=== PATIENT | female | born 1995 | race Caucasian/White ===

== ENCOUNTER 2017-05-03 23:44 | Inpatient (IN) | payer MEDICAID ==
[2017-05-04] MEDS ORDERED: Ondansetron 4 MG/2 ML SDV IVPUSH PRN ×2 (00:19→02:17)
[2017-05-04] MEDS ORDERED: Aluminum Hydroxide/Magnesium Hydroxide/Simethicone Susp 30 ML Cup PO PRN (00:19)
[2017-05-04] MEDS ORDERED: Lidocaine 1% 50 ML MDV INJECT PRN (00:19)
[2017-05-04] MEDS ORDERED: Nalbuphine 20 MG/1 ML Amp IVPUSH PRN (00:19)
[2017-05-04] MEDS ORDERED: Oxytocin/Lactated Ringers 10 UNIT/1,000 ML BAG IV SCH (00:30)
[2017-05-04] MEDS ORDERED: Ampicillin 2 GM in Sodium Chloride 0.9% 100 ML IV ONE (00:30)
[2017-05-04] MEDS ORDERED: Lactated Ringers 1,000 ML IV SCH (00:30)
[2017-05-04] MEDS ORDERED: Ampicillin 2 GM Vial ONE (00:39)
[2017-05-04] MEDS ORDERED: Sodium Chloride 0.9% 100 ML ONE (00:39)
--- NOTE | 2017-05-04 00:54 | PCM.LDHP ---
<Loreto Wan - Last Filed: 05/04/17 01:23> L&D History of Present Illness - General Date of Service: 05/04/17 Admit Problem/Dx: Patient Status Order with Admit Dx/Problem 05/04/17 00:20 Patient Status [ADT] Routine Admission Diagnosis/Problem Admission Diagnosis/Problem Normal labor 05/04/17 00:50 Intrauterine at 39 and 2/7th weeks gestation. - History of Present Illness Introduction:: History of Present Illness: The patient is a 21-year-old, 1, para 0-0-1-0, white female with an EDIN of 05/09/2017, who was admitted during the night with complaints of contractions. She was admitted in active labor at 4 cm dilation. Course: The patient's last menstrual period was on 08/05/2016, was definite, using no control at the time of conception. Her EDIN was supported by ultrasounds done on 12/25/2016 and 01/09/2017. Her course has been relatively unremarkable. She was [facility] for [facility]lamydia infection. [facility] She desires natural labor but is open to the idea of an epidural. She had an [place] Depression Screen score of 3 on 12/18/2016. Tdap vaccine was given on 03/14/2017. Group B strep screen was positive. She plans on . Her course weight gain was 129 up to 175 pounds. Her vital signs were stable throughout and fundal height growth was appropriate. Laboratory Testing: Showed blood to be A positive with a negative antibody screen. Her hemoglobin was 13.4 at first visit and platelets were 259,000. She is rubella immune. RPR is nonreactive. Hepatitis B and HIV assays were negative. Chlamydia was positive and gonorrhea was negative. She declined genetic testing. Her second trimester testing showed a hemoglobin of 12.9 and her platelets were 217,000. Her 1-hour glucose was 86 - normal. Group B strep screen was positive. Allergies: none Current Medications: tabs Clindamycin Phosphate 1% gel Past Medical History: chlamydia infection; 2014 Past Surgical History: none - Related Data Allergies/Adverse Reactions: Allergies Allergy/AdvReac Type Severity Reaction Status Date / Time No Known Allergies Allergy Verified 05/04/17 00:16 Home Medications: Home Meds Prenat Vit Comb.10/Iron/Fa/Dha [Vitafol-OB + DHA] 1 each PO DAILY 01/05/17 [ History] Social & Family History - Family History Other Family History: Maternal uncle: heart condition Mother: heart murmur Maternal uncle: stroke - Tobacco Use Smoking Status *Q: Never Smoker - Alcohol Use Alcohol Use History: No - Living Situation & Occupation Living situation: Reports: Single H&P Review of Systems - Review of Systems: Review Of Systems: See Below Free Text/Narrative: Respiratory: No dyspnea, recent infectious symptoms, or history of asthma. Cardiovascular: History of heart murmur and palpatations. No chest pain. Breasts: Changes associated only with . GI: Diarrhea recently. No nausea, and constipation. : Changes associated with . No burning with urination. Musculoskeletal: No edema during and none at present Neurological: No headaches or vision changes Hematologic: No history of blood clots, easy bruising or bleeding L&D Exam - Exam Exam: See Below - Vital Signs Vital Signs: Last Vital Signs Temp 97.9 F 05/04/17 00:15 Pulse 84 05/04/17 00:15 Resp 17 05/04/17 00:15 BP 126/84 05/04/17 00:15 Pulse Ox 100 05/04/17 00:15 General: The patient is a well-developed, well-nourished, pleasant female of stated age, in no acute distress Vital Signs: Her blood pressure was 118/76 on 05/03/2017 on last clinic evaluation. Her weight was 175 with pregravid weight of 129. heart rate was 141. Skin: warm and dry without lesions Lungs: Clear to auscultation bilaterally Cardiovascular: Regular rate and rhythm without murmurs Breasts: Exam deferred having been done and normal at initial visit Abdomen: Protuberant with and fundal height of 39 cm. Baby in a vertex presentation, cervical exam yesterday in clinic was 3 cm, 80% effaced, soft, 3- and mid position. Extremities: no edema Weight: 80.513 kg - Patient Data Lab Results Last 24 hrs: Laboratory Results - last 24 hr 05/04/17 Range/Units 00:40 WBC 14.28 H (3.98-10.04) K/mm3 RBC 4.13 (3.98-5.22) M/mm3 Hgb 13.5 (11.2-15.7) gm/L Hct 38.9 (34.1-44.9) % MCV 94.2 (79.4-94.8) fl MCH 32.7 H (25.6-32.2) pg MCHC 34.7 (32.2-35.5) g/dl RDW Std Deviation 44.0 (36.4-46.3) fL Plt Count 222 (182-369) K/mm3 MPV 10.2 (9.4-12.3) fl Neut % (Auto) 75.5 H (34.0-71.1) % Lymph % (Auto) 11.6 L (19.3-51.7) % Mcdonald % (Auto) 12.0 (4.7-12.5) % Eos % (Auto) 0.4 L (0.7-5.8) Baso % (Auto) 0.1 (0.1-1.2) % Neut # (Auto) 10.77 H (1.56-6.13) K/mm3 Lymph # (Auto) 1.66 (1.18-3.74) K/mm3 Mcdonald # (Auto) 1.72 H (0.24-0.36) K/mm3 Eos # (Auto) 0.06 (0.04-0.36) K/mm3 Baso # (Auto) 0.01 (0.01-0.08) K/mm3 Result Diagrams: 05/04/17 00:40 Orders Last 24hrs: Active Orders 24 hr Category Date Time Status Patient Status [ADT] Routine ADT 05/04/17 00:20 Active Activity as Tolerated [RC] PFP Care 05/04/17 00:20 Active Communication Order [RC] ASDIRECTED Care 05/04/17 00:20 Active Notify Provider [RC] PFP Care 05/04/17 00:20 Active Notify Provider [RC] PRN Care 05/04/17 00:20 Active Vital Signs [RC] PER UNIT ROUTINE Care 05/04/17 00:20 Active Regular Diet [DIET] Diet 05/04/17 Breakfast Active CBC WITH AUTO DIFF [HEME] Stat Lab 05/04/17 00:40 Results Alum Hydrox/Mag Hydrox/Simeth [Mag-Al Plus] Med 05/04/17 00:19 Active 30 ml PO Q8H PRN Ampicillin 1 gm Med 05/04/17 04:30 Active Sodium Chloride 0.9% [Normal Saline] 100 ml IV Q4H Ampicillin 2 gm Med 05/04/17 00:30 Active Sodium Chloride 0.9% [Normal Saline] 100 ml IV ONETIME Lactated Ringers [Ringers, Lactated] 1,000 ml Med 05/04/17 00:30 Active IV ASDIRECTED Lidocaine 1% [Xylocaine 1%] Med 05/04/17 00:19 Active 50 ml INJECT ONETIME PRN Nalbuphine [Nubain] Med 05/04/17 00:19 Active 10 mg IVPUSH Q2H PRN Ondansetron [Zofran] Med 05/04/17 00:19 Active 4 mg IVPUSH Q4H PRN Oxytocin/Lactated Ringers [Pitocin in LR 10 Units/1,000 Med 05/04/17 00:30 Active ML] 10 unit in 1,000 ml IV .CONTINUOUS Electronic Heart Tones Ext w TOCO [WOMSER] Oth 05/04/17 00:20 Ordered Routine Electronic Heart Tones Internal [WOMSER] Per Unit Oth 05/04/17 00:20 Ordered Routine Peripheral IV Insertion Adult [OM.PC] Routine Oth 05/04/17 00:20 Ordered Resuscitation Status Routine Resus Stat 05/04/17 00:19 Ordered Medication Orders Al Hydroxide/Mg Hydroxide (Mag-Al Plus) 30 ml PO Q8H PRN PRN Reason: Heartburn Ampicillin Sodium 2 gm/ Sodium (Chloride) 100 mls @ 200 mls/hr IV ONETIME ONE Stop: 05/04/17 00:59 Ampicillin Sodium 1 gm/ Sodium (Chloride) 100 mls @ 200 mls/hr IV Q4H JANIS Lactated Ringer's (Ringers, Lactated) 1,000 mls @ 100 mls/hr IV ASDIRECTED JANIS Oxytocin/Lactated Ringer's (Pitocin In Lr 10 Units/1,000 Ml) 10 unit in 1,000 mls @ 500 mls/hr IV .CONTINUOUS JANIS Lidocaine HCl (Xylocaine 1%) 50 ml INJECT ONETIME PRN PRN Reason: Pain Nalbuphine HCl (Nubain) 10 mg IVPUSH Q2H PRN PRN Reason: Pain (moderate 4-6) Ondansetron HCl (Zofran) 4 mg IVPUSH Q4H PRN PRN Reason: Nausea/Vomiting Assessment/Plan Comment:: Assessment: 1. Term intrauterine at 39 and 2/7th weeks gestational age, active labor, progression of cervical dilation. 2. Group B strep screen positive 3. Natural labor desired, epidural okay 4. Patient desires to nurse Plan: 1. Anticipate normal spontaneous vaginal delivery 2. Epidural PRN per patient's desire 3. CBC if epidural desired 4. support nursing decision <Devon Alonso F - Last Filed: 05/04/17 04:06> L&D History of Present Illness - General Admit Problem/Dx: Patient Status Order with Admit Dx/Problem 05/04/17 00:20 Patient Status [ADT] Routine Admission Diagnosis/Problem Admission Diagnosis/Problem Normal labor H&P Review of Systems - Review of Systems: Review Of Systems: See Below L&D Exam - Exam Exam: See Below - Vital Signs Vital Signs: Last Vital Signs Temp 36.6 C 05/04/17 02:30 Pulse 84 05/04/17 02:30 Resp 17 05/04/17 02:30 BP 126/84 05/04/17 02:30 Pulse Ox 100 05/04/17 02:30 - Patient Data Lab Results Last 24 hrs: Laboratory Results - last 24 hr 05/04/17 Range/Units 00:40 WBC 14.28 H (3.98-10.04) K/mm3 RBC 4.13 (3.98-5.22) M/mm3 Hgb 13.5 (11.2-15.7) gm/L Hct 38.9 (34.1-44.9) % MCV 94.2 (79.4-94.8) fl MCH 32.7 H (25.6-32.2) pg MCHC 34.7 (32.2-35.5) g/dl RDW Std Deviation 44.0 (36.4-46.3) fL Plt Count 222 (182-369) K/mm3 MPV 10.2 (9.4-12.3) fl Neut % (Auto) 75.5 H (34.0-71.1) % Lymph % (Auto) 11.6 L (19.3-51.7) % Mcdonald % (Auto) 12.0 (4.7-12.5) % Eos % (Auto) 0.4 L (0.7-5.8) Baso % (Auto) 0.1 (0.1-1.2) % Neut # (Auto) 10.77 H (1.56-6.13) K/mm3 Lymph # (Auto) 1.66 (1.18-3.74) K/mm3 Mcdonald # (Auto) 1.72 H (0.24-0.36) K/mm3 Eos # (Auto) 0.06 (0.04-0.36) K/mm3 Baso # (Auto) 0.01 (0.01-0.08) K/mm3 Manual Slide Review Abnormal smear Result Diagrams: 05/04/17 00:40 Problem List Initiated/Reviewed/Updated: Yes Orders Last 24hrs: Active Orders 24 hr Category Date Time Status Patient Status [ADT] Routine ADT 05/04/17 00:20 Active Activity as Tolerated [RC] PFP Care 05/04/17 00:20 Active Communication Order [RC] ASDIRECTED Care 05/04/17 00:20 Active Notify Provider [RC] ASDIRECTED Care 05/04/17 02:17 Active Notify Provider [RC] PFP Care 05/04/17 00:20 Active Notify Provider [RC] PRN Care 05/04/17 00:20 Active Oxygen Therapy [RC] ASDIRECTED Care 05/04/17 02:16 Active Pulse Oximetry [RC] ASDIRECTED Care 05/04/17 02:17 Active Vital Signs [RC] PER UNIT ROUTINE Care 05/04/17 00:20 Active Regular Diet [DIET] Diet 05/04/17 Breakfast Active Alum Hydrox/Mag Hydrox/Simeth [Mag-Al Plus] Med 05/04/17 00:19 Active 30 ml PO Q8H PRN Ampicillin 1 gm Med 05/04/17 04:30 Active Sodium Chloride 0.9% [Normal Saline] 100 ml IV Q4H Bupivacaine/fentaNYL/NS [fentaNYL/Bupivacaine/NS 2 MCG- Med 05/04/17 02:30 Active 0.125% 100 ML] 100 ml EPIDUR ASDIRECTED Lactated Ringers [Ringers, Lactated] 1,000 ml Med 05/04/17 00:30 Active IV ASDIRECTED Lidocaine 1% [Xylocaine 1%] Med 05/04/17 00:19 Active 50 ml INJECT ONETIME PRN Nalbuphine [Nubain] Med 05/04/17 00:19 Active 10 mg IVPUSH Q2H PRN Ondansetron [Zofran] Med 05/04/17 02:17 Active 4 mg IVPUSH ONETIME PRN Ondansetron [Zofran] Med 05/04/17 00:19 Active 4 mg IVPUSH Q4H PRN Oxytocin/Lactated Ringers [Pitocin in LR 10 Units/1,000 Med 05/04/17 00:30 Active ML] 10 unit in 1,000 ml IV .CONTINUOUS ePHEDrine [ePHEDrine Sulfate] Med 05/04/17 02:17 Active 5 mg IVPUSH ASDIRECTED PRN fentaNYL [Sublimaze] Med 05/04/17 02:17 Active 100 mcg EPIDUR Q3H PRN Electronic Heart Tones Ext w TOCO [WOMSER] Oth 05/04/17 00:20 Ordered Routine Electronic Heart Tones Internal [WOMSER] Per Unit Ot 05/04/17 00:20 Ordered Routine Peripheral IV Insertion Adult [OM.PC] Routine Oth 05/04/17 00:20 Ordered Resuscitation Status Routine Resus Stat 05/04/17 00:19 Ordered Medication Orders Al Hydroxide/Mg Hydroxide (Mag-Al Plus) 30 ml PO Q8H PRN PRN Reason: Heartburn Ephedrine Sulfate (Ephedrine Sulfate) 5 mg IVPUSH ASDIRECTED PRN PRN Reason: Hypotension Fentanyl (Sublimaze) 100 mcg EPIDUR Q3H PRN PRN Reason: Pain Fentanyl/Bupivacaine HCl (Fentanyl/Bupivacaine/Ns 2 Mcg-0.125% 100 Ml) 100 ml EPIDUR ASDIRECTED JANIS Ampicillin Sodium 1 gm/ Sodium (Chloride) 100 mls @ 200 mls/hr IV Q4H JANIS Lactated Ringer's (Ringers, Lactated) 1,000 mls @ 100 mls/hr IV ASDIRECTED JANIS Last Admin: 05/04/17 00:30 Dose: 500 mls/hr Oxytocin/Lactated Ringer's (Pitocin In Lr 10 Units/1,000 Ml) 10 unit in 1,000 mls @ 500 mls/hr IV .CONTINUOUS JANIS Last Admin: 05/04/17 03:44 Dose: 500 mls/hr Lidocaine HCl (Xylocaine 1%) 50 ml INJECT ONETIME PRN PRN Reason: Pain Nalbuphine HCl (Nubain) 10 mg IVPUSH Q2H PRN PRN Reason: Pain (moderate 4-6) Ondansetron HCl (Zofran) 4 mg IVPUSH Q4H PRN PRN Reason: Nausea/Vomiting Ondansetron HCl (Zofran) 4 mg IVPUSH ONETIME PRN PRN Reason: Nausea/Vomiting
[2017-05-04] MEDS ORDERED: Bupivacaine 0.25% 10 ML SDV ONE (00:59)
[2017-05-04] MEDS ORDERED: fentaNYL 100 MCG/2 ML SDV EPIDUR PRN (02:17)
[2017-05-04] MEDS ORDERED: ePHEDrine 50 MG/ML SDV IVPUSH PRN (02:17)
--- NOTE | 2017-05-04 02:29 | PCM.PREANE ---
Preanesthetic Assessment - Anesthesia/Transfusion/Family Hx Anesthesia History: No Prior Anesthesia Family History of Anesthesia Reaction: No Transfusion History: No Prior Transfusion(s) Intubation History: Unknown - Review of Systems General: No Symptoms Pulmonary: No Symptoms Cardiovascular: No Symptoms Gastrointestinal: Diarrhea, Nausea, Vomiting Neurological: No Symptoms Other: Reports: None - Physical Assessment NPO Status Date: 05/03/17 NPO Status Time: 21:30 Pulse: 84 O2 Sat by Pulse Oximetry: 100 Respiratory Rate: 17 Blood Pressure: 126/84 Temperature: 36.6 C Vital Signs: Last Vital Signs Temp 36.6 C 05/04/17 00:15 Pulse 84 05/04/17 00:15 Resp 17 05/04/17 00:15 BP 126/84 05/04/17 00:15 Pulse Ox 100 05/04/17 00:15 Height: 1.78 m Weight: 80.513 kg ASA Class: 2 Mental Status: Alert & Oriented x3 Airway Class: Mallampati = 2 Dentition: Reports: Normal Dentition, Caries Thyro-Mental Finger Breadths: 3 Mouth Opening Finger Breadths: 3 ROM/Head Extension: Full Lungs: Clear to Auscultation, Normal Respiratory Effort Cardiovascular: Regular Rate, Regular Rhythm - Lab Values: Laboratory Last Values WBC 14.28 K/mm3 (3.98-10.04) H 05/04/17 00:40 RBC 4.13 M/mm3 (3.98-5.22) 05/04/17 00:40 Hgb 13.5 gm/L (11.2-15.7) 05/04/17 00:40 Hct 38.9 % (34.1-44.9) 05/04/17 00:40 MCV 94.2 fl (79.4-94.8) 05/04/17 00:40 MCH 32.7 pg (25.6-32.2) H 05/04/17 00:40 MCHC 34.7 g/dl (32.2-35.5) 05/04/17 00:40 RDW Std Deviation 44.0 fL (36.4-46.3) 05/04/17 00:40 Plt Count 222 K/mm3 (182-369) 05/04/17 00:40 MPV 10.2 fl (9.4-12.3) 05/04/17 00:40 Neut % (Auto) 75.5 % (34.0-71.1) H 05/04/17 00:40 Lymph % (Auto) 11.6 % (19.3-51.7) L 05/04/17 00:40 [place] % (Auto) 12.0 % (4.7-12.5) 05/04/17 00:40 Eos % (Auto) 0.4 (0.7-5.8) L 05/04/17 00:40 Baso % (Auto) 0.1 % (0.1-1.2) 05/04/17 00:40 Neut # (Auto) 10.77 K/mm3 (1.56-6.13) H 05/04/17 00:40 Lymph # (Auto) 1.66 K/mm3 (1.18-3.74) 05/04/17 00:40 [place] # (Auto) 1.72 K/mm3 (0.24-0.36) H 05/04/17 00:40 Eos # (Auto) 0.06 K/mm3 (0.04-0.36) 05/04/17 00:40 Baso # (Auto) 0.01 K/mm3 (0.01-0.08) 05/04/17 00:40 Manual Slide Review Abnormal smear 05/04/17 00:40 Above labs reviewed and noted. 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: - Past Surgical History HEENT Surgical History: Reports: Oral Surgery Cardiovascular Surgical History: Reports: None - SUBSTANCE USE Smoking Status *Q: Never Smoker Tobacco Use Within Last Twelve Months: Cigarettes Second Hand Smoke Exposure: No Recreational Drug Use History: No - HOME MEDS Home Medications: Home Meds Prenat Vit Comb.10/Iron/Fa/Dha [Vitafol-OB + DHA] 1 each PO DAILY 01/05/17 [ History] - CURRENT (IN HOUSE) MEDS Current Meds: Current Medications Al Hydroxide/Mg Hydroxide (Mag-Al Plus) 30 ml PO Q8H PRN PRN Reason: Heartburn Ephedrine Sulfate (Ephedrine Sulfate) 5 mg IVPUSH ASDIRECTED PRN PRN Reason: Hypotension Fentanyl (Sublimaze) 100 mcg EPIDUR Q3H PRN PRN Reason: Pain Fentanyl/Bupivacaine HCl (Fentanyl/Bupivacaine/Ns 2 Mcg-0.125% 100 Ml) 100 ml EPIDUR ASDIRECTED [facility] Ampicillin Sodium 1 gm/ Sodium (Chloride) 100 mls @ 200 mls/hr IV Q4H JANIS Lactated Ringer's (Ringers, Lactated) 1,000 mls @ 100 mls/hr IV ASDIRECTED [facility] Last Admin: 05/04/17 00:30 Dose: 500 mls/hr Oxytocin/Lactated Ringer's (Pitocin In Lr 10 Units/1,000 Ml) 10 unit in 1,000 mls @ 500 mls/hr IV .CONTINUOUS [facility] Lidocaine HCl (Xylocaine 1%) 50 ml INJECT ONETIME PRN PRN Reason: Pain Nalbuphine HCl (Nubain) 10 mg IVPUSH Q2H PRN PRN Reason: Pain (moderate 4-6) Ondansetron HCl (Zofran) 4 mg IVPUSH Q4H PRN PRN Reason: Nausea/Vomiting Ondansetron HCl (Zofran) 4 mg IVPUSH ONETIME PRN PRN Reason: Nausea/Vomiting Discontinued Medications Ampicillin Sodium (Ampicillin) Confirm Administered Dose 2 gm .ROUTE .[employer]-MED ONE Stop: 05/04/17 00:40 Last Admin: 05/04/17 00:51 Dose: 2 gm Ampicillin Sodium 2 gm/ Sodium (Chloride) 100 mls @ 200 mls/hr IV ONETIME ONE Stop: 05/04/17 00:59 Last Admin: 05/04/17 00:55 Dose: Not Given Sodium Chloride (Normal Saline) Confirm Administered Dose 100 mls @ as directed .ROUTE .[employer]-MED ONE Stop: 05/04/17 00:40 Last Admin: 05/04/17 00:51 Dose: 200 ml
[2017-05-04] MEDS ORDERED: Bupivacaine/fentaNYL/NS 100 ML Bag EPIDUR SCH (02:30)
[2017-05-04] MEDS ORDERED: Witch Hazel Medicated Pads 100/Jar TOP PRN (04:10)
[2017-05-04] MEDS ORDERED: Lanolin 100% Cream 7 GM Tube TOP PRN (04:10)
[2017-05-04] MEDS ORDERED: Benzocaine/Menthol 20%-0.5% Spray 56 GM Canister TOP PRN (04:10)
[2017-05-04] MEDS ORDERED: Acetaminophen 325 MG Tab PO PRN (04:10)
[2017-05-04] MEDS ORDERED: Docusate Sodium 100 MG Cap PO PRN (04:10)
--- NOTE | 2017-05-04 04:14 | PCM.SN ---
- Free Text/Narrative Note: Gabbie is a 21-year-old 2 now para 1011 white female is admitted during the night of 05/03/2017. She is in active labor. On admission she was approximately 5 cm dilated, 100% effaced with bulging bag garzon. Vertex presentation. She progressed to complete cervical dilation by approximately 0300 hrs. Artificial rupture membranes resulted in clear amniotic fluid. heart tones were showing some decelerations so a small episiotomy was made and baby delivered without problems. She delivered a viable, pederson, male infant with Apgars of 8 and 9, a length of 20 inches, a weight of 3470 g (7 lbs. 10.4 oz.) in a right occiput anterior position. Anterior and posterior shoulders were delivered and baby was placed on mom's abdomen. The cord was clamped 2 and was cut by the father of the baby. Cord was obtained. A small midline episiotomy was repaired with 3-0 Monocryl in a routine fashion. The placenta delivered in a Rodriguez presentation, appeared intact and complete. It was discarded per patient's desire. Nuchal cord had 3 vessels. Blood loss was 300 mL. Patient plans to nurse. Condition: Good
[2017-05-04] MEDS ORDERED: Ampicillin 1 GM in Sodium Chloride 0.9% 100 ML IV SCH (04:30)
[2017-05-04] MEDS ORDERED: PRENAT VIT COMB PO SCH (09:00)
[2017-05-04] MEDS ORDERED: DHA PO SCH (09:00)
[2017-05-04] MEDS ORDERED: IRON PO SCH (09:00)
[2017-05-04] MEDS ORDERED: [UNRECOGNIZED DRUG - OTHER] PO SCH (09:00)
[2017-05-04] MEDS: Ibuprofen 600 MG Tab PO PRN ×2 (15:44→22:23)
[2017-05-05] MEDS: Prenatal Multivitamin with Calcium/Folic Acid/Iron Tab PO SCH ×2 (09:53→15:44)
[2017-05-05] MEDS: Ibuprofen 600 MG Tab PO PRN ×2 (09:53→20:09)
--- NOTE | 2017-05-05 10:13 | PCM.SN ---
- Free Text/Narrative Note: Patient is doing well. She reports minimal lochia. She is voiding without problems and ambulating well. She is nursing without concerns Vital signs are stable, patient is afebrile. Abdomen soft, nontender, uterus is at the umbilicus, is firm and nontender. Extremities show no significant edema. Assessment/plan: day onenormal recovery. Hemoglobin today.
[2017-05-06] MEDS: Ibuprofen 600 MG Tab PO PRN (03:14)
[2017-05-06 04:03] VITALS: BP 104/77
--- NOTE | 2017-05-06 06:19 | PCM.DCSUM1 ---
Discharge Summary - Hospital Course Free Text/Narrative:: Gabbie is a 21-year-old 2 now para 1011 white female is admitted during the night of 05/03/2017. She is in active labor. On admission she was approximately 5 cm dilated, 100% effaced with bulging bag garzon. Vertex presentation. She progressed to complete cervical dilation by approximately 0300 hrs. Artificial rupture membranes resulted in clear amniotic fluid. heart tones were showing some decelerations so a small episiotomy was made and baby delivered without problems. She delivered a viable, pederson, male with Apgars of 8 and 9, a length of 20 inches, a weight of 3470 g (7 lbs. 10.4 oz.) in a right occiput anterior position. Anterior and posterior shoulders were delivered and baby was placed on mom's abdomen. The cord was clamped 2 and was cut by the father of the baby. Cord was obtained. A small midline episiotomy was repaired with 3-0 Monocryl in a routine fashion. The placenta delivered in a Rodriguez presentation, appeared intact and complete. It was discarded per patient's desire. Nuchal cord had 3 vessels. Blood loss was 300 mL. Patient plans to nurse. patient is done very well. She's had a little more than average bleeding but within normal limits and I suspect the blood clots that she's passed on 2 occasions were were old blood clots from the time of delivery. She is ambulating well, nursing without problems and voiding without concern. Desiring to be discharged today. - Discharge Data Discharge Date: 05/06/17 Discharge Disposition: Home, Self-Care 01 Condition: Good - Patient Instructions Diet: Regular Diet as Tolerated (Nursing diet was increased calcium and calories as directed.) Activity: As Tolerated (No intercourse or tampons until bleeding resolves) Driving: Do Not Drive (2 days after which she may drive if feeling well.) Showering/Bathing: May Shower (May take a bath) Notify Provider of: Fever, Increased Pain, Swelling and Redness, Nausea and/or Vomiting - Discharge Plan Home Medications: Home Meds Prenat Vit Comb.10/Iron/Fa/Dha [Vitafol-OB + DHA] 1 each PO DAILY 01/05/17 [ History] Ibuprofen [IJD: Ibuprofen] 600 mg PO Q4H PRN #30 tablet 05/06/17 [Rx] Referrals: Devon Alonso MD [Physician] - [facility] - Discharge Summary/Plan Comment DC Time >30 min.: No Discharge Summary/Plan Comment: Discharge instructions: 1. Discharge home, routine instructions given concerning activity diet and follow-up. 2. Regular, high fiber, nursing diet with increased calcium and calories as directed 3. Routine precautions given concern increased pain, bleeding, temperature, signs/symptoms of DVT/PE. 4. Medications per home medication list printed, discussed with and given to the patient. 5. Return to [facility] Alonso[facility]6 [facility]. Diagnosis: 38 week intrauterine -delivered Condition: - Patient Data Vitals - Most Recent: Last Vital Signs Temp 36.6 C 05/06/17 04:00 Pulse 78 05/06/17 04:00 Resp 15 05/06/17 04:00 BP 104/77 05/06/17 04:00 Pulse Ox 98 05/06/17 04:00 Weight - Most Recent: 80.513 kg I&O - Last 24 hours: Intake & Output 05/05/17 05/05/17 05/06/17 14:59 22:59 06:59 Intake Total 360 0 Balance 360 0 Lab Results - Last 24 hrs: Laboratory Results - last 24 hr 05/05/17 Range/Units 06:54 WBC 11.93 H (3.98-10.04) K/mm3 RBC 3.21 L (3.98-5.22) M/mm3 Hgb 10.5 L (11.2-15.7) gm/L Hct 31.1 L (34.1-44.9) % MCV 96.9 H (79.4-94.8) fl MCH 32.7 H (25.6-32.2) pg MCHC 33.8 (32.2-35.5) g/dl RDW Std Deviation 44.0 (36.4-46.3) fL Plt Count 185 (182-369) K/mm3 MPV 11.0 (9.4-12.3) fl Med Orders - Current: Current Medications Acetaminophen (Tylenol) 650 mg PO Q4H PRN PRN Reason: mild pain or fever Benzocaine/Menthol (Dermoplast Pain Relief [place]) 0 gm TOP ASDIRECTED PRN PRN Reason: Perineal Comfort Measure Last Admin: 05/04/17 05:03 Dose: 1 can Docusate Sodium (Colace) 100 mg PO BID PRN PRN Reason: Constipation Emollient Ointment (Lansinoh Hpa) 0 gm TOP ASDIRECTED PRN PRN Reason: Sore Nipples Ibuprofen (Motrin) 600 mg PO Q4H PRN PRN Reason: Mild pain or fever Last Admin: 05/06/17 03:14 Dose: 600 mg Prenat Multivit/Slot Key Person/Iron/Folic Ac ( Plus Iron) 1 each PO DAILY [facility] Last Admin: 05/05/17 15:44 Dose: Not Given Witch Gricelda (Tucks) 1 pad TOP ASDIRECTED PRN PRN Reason: Hemorrhoid pain Last Admin: 05/04/17 05:03 Dose: 1 box Discontinued Medications Al Hydroxide/Mg Hydroxide (Mag-Al Plus) 30 ml PO Q8H PRN PRN Reason: Heartburn Ampicillin Sodium (Ampicillin) Confirm Administered Dose 2 gm .ROUTE .STK-MED ONE Stop: 05/04/17 00:40 Last Admin: 05/04/17 00:51 Dose: 2 gm Ephedrine Sulfate (Ephedrine Sulfate) 5 mg IVPUSH ASDIRECTED PRN PRN Reason: Hypotension Fentanyl (Sublimaze) 100 mcg EPIDUR Q3H PRN PRN Reason: Pain Fentanyl/Bupivacaine HCl (Fentanyl/Bupivacaine/Ns 2 Mcg-0.125% 100 Ml) 100 ml EPIDUR ASDIRECTED [facility] Ampicillin Sodium 2 gm/ Sodium (Chloride) 100 mls @ 200 mls/hr IV ONETIME ONE Stop: 05/04/17 00:59 Last Admin: 05/04/17 00:55 Dose: Not Given Ampicillin Sodium 1 gm/ Sodium (Chloride) 100 mls @ 200 mls/hr IV Q4H JANIS Lactated Ringer's (Ringers, Lactated) 1,000 mls @ 100 mls/hr IV ASDIRECTED JANIS Last Admin: 05/04/17 00:30 Dose: 500 mls/hr Oxytocin/Lactated Ringer's (Pitocin In Lr 10 Units/1,000 Ml) 10 unit in 1,000 mls @ 500 mls/hr IV .CONTINUOUS JANIS Last Admin: 05/04/17 03:44 Dose: 500 mls/hr Sodium Chloride (Normal Saline) Confirm Administered Dose 100 mls @ as directed .ROUTE .STK-MED ONE Stop: 05/04/17 00:40 Last Admin: 05/04/17 00:51 Dose: 200 ml Lidocaine HCl (Xylocaine 1%) 50 ml INJECT ONETIME PRN PRN Reason: Pain Last Admin: 05/04/17 03:40 Dose: 50 ml Nalbuphine HCl (Nubain) 10 mg IVPUSH Q2H PRN PRN Reason: Pain (moderate 4-6) Non-Formulary Medication (Prenat Vit Comb.10/Iron/Fa/Dha [Vitafol-Ob + Dha]) 1 each PO DAILY [facility] Ondansetron HCl (Zofran) 4 mg IVPUSH Q4H PRN PRN Reason: Nausea/Vomiting Ondansetron HCl (Zofran) 4 mg IVPUSH ONETIME PRN PRN Reason: Nausea/Vomiting *Q Meaningful Use (DIS) - VTE *Q VTE Criteria *Q: - Stroke *Q Stroke Criteria *Q: - AMI *Q AMI Criteria *Q:
== END 2017-05-06 10:55 | disposition home or self-care (01) | DRG 775 ==
LOC: JD.OBCHECK 23:44 → JD.OB 23:47 → JD.OBCHECK 05-04 00:20 → JD.OB 05-04 00:20 → JD.MS 05-04 03:39 → OBSVTOIN 05-04 03:39 → JD.OB 05-04 11:35
PROVIDERS: ADMIT Obstetrics & Gynecology; ATTEND Obstetrics & Gynecology
PROC: 10E0XZZ Delivery of Products of Conception, External Approach (ICD-10-PCS; principal; 2017-05-04)
PROC: 0W8NXZZ Division of Female Perineum, External Approach (ICD-10-PCS; 2017-05-04)
PROC: 10907ZC Drainage of Amniotic Fluid, Therapeutic from Products of Conception, Via Natural or Artificial Opening (ICD-10-PCS; 2017-05-04)
DX: O99.824 Streptococcus B carrier state complicating childbirth (principal); Z3A.39 39 weeks gestation of pregnancy; Z37.0 Single live birth
CPT/HCPCS: 36415; 85025; 85027; A9270-GY; J0290; J2590; J7030; J7120